=== PATIENT | male | born 2005 | race Caucasian/White ===

== ENCOUNTER 2025-03-30 16:08 | Emergency (ER) | payer OTHER, SELFPAY ==
[2025-03-30 16:09] VITALS: BP 136/85
--- NOTE | 2025-03-30 19:23 | ED.MUSCINJ ---
HPI-Injury
General
Chief Complaint: Musculo-Skeletal Complaint
Source: patient
Exam Limitations: none
Time Seen by Provider: 03/30/25 17:41
Nursing documentation reviewed up to this point in time: agreed with
History of Present Illness-Injury
Initial Injury comments:
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 Has had increasing pain and some swelling in the forearm where the handle was leaning on.
Past History
Past History
ED Past Medical History: None
ED Past Surgical History: Orthopedic
Social History
Tobacco: Non-smoker
Alcohol: Occasional
Personal: Single
Living: with family
Employment: Employed
Review of Systems
Review of Systems
Allergies reviewed?: Yes
All Other Systems: ROS reviewed and negative except as documented in HPI and ROS
Phy Exam
Physical Exam
Physical Exam:
PHYSICAL EXAMINATION:
General: no apparent distress, not acutely ill
Neuro: alert and oriented.
Psychiatric: well kept. interactive and cooperative
Musculoskeletal: Moves with ease. Mild swelling and tenderness mid right forearm consistent with contusion. Distal n/v intact. Full ROM, full tendon function.
Skin: Warm, pink.
Injury Course
Orders/Labs/Results
Orders:
Orders
03/30/25 16:15
CR Forearm - Right 2 View Urgent
Comment:
Reason For Exam: pain swelling after shoveling
CR Wrist - Right Min 3 Views Urgent
Comment:
Reason For Exam: pain swelling after shoveling
MDM/Problems Addressed
MDM/Problems Addressed:
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 Has had increasing pain and some swelling in the forearm where the handle was leaning on.
Xray right wrist and forearm neg
Hx and exam consistent with contusion.
*Pulse Oximetry
SaO2: 100
Oxygen Mode of Delivery: Room air
Patient hypoxic: not evaluated
*Critical Care Note
Total Time (30-74mins, 75-104mins- exclusive of procedures): Not Applicable
ED Attending Note
-
Portions of this chart may have been created with voice recognition software.� Occasional wrong word or��sound alike� substitutions may have occurred due to the inherent limitations of voice recognition software.
Discharge Plan
Departure
Patient Disposition: Home (Routine Discharge)
Date of Disposition: 03/30/25
Time of Disposition: 18:20
Patient with high blood pressure during this ER visit?: No
Condition: Good
Discharge Problem:
Contusion of right forearm
Instructions: Contusion (DC)
Prescriptions:
No Action
cephalexin 250 MG capsule
250 mg PO TID Qty: 21 0RF
Referrals:
Kristina Bush I., DO [Active, Orthopedics] - As needed
Activity Restrictions/Additional Instructions:
As we discussed, your x-ray shows normal bones.
Cold compress to the area 20 minutes off and on is much as you can today and tomorrow to help minimize swelling.
Ibuprofen 400 mg every 6 hours as needed for pain.
See the orthopedic doctor in 2 weeks if it is not 100% better by then
Interventions
Interventions:
*Risk Screen - Suicide Last Done: 03/30/25 16:09
*General Assessment Last Done: 03/30/25 16:09
*Neglect/Abuse Screening Last Done: 03/30/25 16:09
*ED COVID-19 Vaccine History Last Done: 03/30/25 16:09
*Nursing Disposition Last Done: 03/30/25 18:57
ED-Musculoskeletal Assessment Last Done: 03/30/25 18:51
Discharge Date and Time
Discharge Date/Time: 03/30/25 18:57
Print Language: ROMANSH
== END 2025-03-30 18:57 | disposition home or self-care (01) ==
LOC: EMR 16:08
PROVIDERS: EMERGENCY PHYSICIAN Emergency Medicine; FAMILY PHYSICIAN Internal Medicine
DX: S50.11XA Contusion of right forearm, initial encounter (principal); X50.1XXA Overexertion from prolonged static or awkward postures, initial encounter; Y92.79 Other farm location as the place of occurrence of the external cause; Y99.0 Civilian activity done for income or pay
CPT/HCPCS: 99283; 73090; 73110

== ENCOUNTER 2025-03-31 11:25 | Emergency (ER) | payer OTHER, SELFPAY ==
[2025-03-31 11:28] VITALS: BP 139/100
[2025-03-31 14:21] VITALS: BP 125/70
--- NOTE | 2025-03-31 14:25 | ED.GENMED ---
History of Present Illness
General
Chief Complaint: Numbness
Source: patient
Time Seen by Provider: 03/31/25 11:54
History of Present Illness
History of Present Illness:
20-year-old male with no significant past medical history presents emergency department for evaluation after being seen here yesterday for right forearm injury where he was thought to have a muscle contusion, concerned that he developed intermittent
tingling sensation to the forearm and hand stating he believes he has a blood clot. 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 Patient states there is no direct trauma or injury. Denies
any color changes, heat or cold intolerance, focal weakness or numbness or any previous complications to the same extremity.
Past History
Past History
ED Past Medical History: None
ED Past Surgical History: Orthopedic
Social History
Tobacco: Non-smoker
Alcohol: Occasional
Drug: None
Personal: Single
Living: with family
Employment: Employed
Review of Systems
Review of Systems
All Other Systems: ROS reviewed and negative except as documented in HPI and ROS
Phy Exam
Physical Exam
Physical Exam:
GENERAL: Alert , in no apparent distress
EYE: conjunctiva clear
Head: Normocephalic atraumatic
NECK: Supple,
ENT: mmm.
LUNGS: no acute respiratory distress
NEUROLOGICAL: Alert and oriented
SKIN: Warm and dry, skin intact.
MUSCULOSKELETAL: Right upper extremity: No obvious deformity, erythema, edema, ecchymosis, abrasion. Patient allows for full range of motion without any difficulty. Sensation is grossly intact and equal to light touch. There is an easily palpable
radial pulse. Cap refill less than 2 seconds.
PSYCH: Normal and appropriate interaction.
Scores
Heart Failure Risk
Heart Failure Risk Score: Not Applicable
Heart Score for Chest Pain Patients
STEMI patient?: Not applicable
Withdrawal Assessment of Alcohol
Withdrawal Assessment Completed?: Not applicable
Course
Orders/Labs/Results
Orders:
Orders
03/31/25 11:55
US Periph Venous UPPER Ext RT Urgent
Comment:
Reason For Exam: pain
Vital Signs
Initial and Last Documented VS:
Initial Vital Signs
Temp Pulse Resp BP Pulse Ox
98.4 F 99 16 139/100 99
03/31/25 11:28 03/31/25 11:28 03/31/25 11:28 03/31/25 11:28 03/31/25 11:28
Last Documented Vital Signs
Temp Pulse Resp BP Pulse Ox
98.4 F 90 16 125/70 99
03/31/25 11:28 03/31/25 14:21 03/31/25 14:21 03/31/25 14:21 03/31/25 14:26
MDM/Problems Addressed
Differential Diagnosis Includes:
Strain
Tendonitis
Contusion
No concern for fracture
Minimal concern for DVT
Thoracic outlet syndrome
Carpal Tunnel
MDM/Problems Addressed:
20-year-old male presenting to the ER for evaluation after being seen yesterday for what was suspected to be a forearm muscular injury. No new injury today. Patient is mainly concerned for DVT. Based off presentation I suspect this is a very
unlikely diagnosis but will obtain ultrasound to further evaluate. Anticipate discharge home.
*Radiology
Radiology exam reviewed: radiology read reviewed
*Pulse Oximetry
SaO2: 99
Oxygen Mode of Delivery: Room air
Patient hypoxic: no
*Critical Care Note
Total Time (30-74mins, 75-104mins- exclusive of procedures): Not Applicable
Patient Management
Escalation/DeEscalation of care consider admission/obs:
Ultrasound is negative for DVT. Continue NSAIDs/Tylenol as needed for pain. Stable for discharge home. Information for orthopedics provided.
ED Attending Note
-
Portions of this chart may have been created with voice recognition software.� Occasional wrong word or��sound alike� substitutions may have occurred due to the inherent limitations of voice recognition software.
Discharge Plan
Departure
Patient Disposition: Home (Routine Discharge)
Date of Disposition: 03/31/25
Time of Disposition: 14:25
Patient with high blood pressure during this ER visit?: No
Discharge Problem:
Pain in right forearm
Instructions: STRAINS
Prescriptions:
No Action
cephalexin 250 MG capsule
250 mg PO TID Qty: 21 0RF
Referrals:
Marv Tellez MD [Active, Orthopedics]
Isma Peterson MD [Family Provider, Internal Medicine]
Interventions
Interventions:
*Risk Screen - Suicide Last Done: 03/31/25 11:28
*General Assessment Last Done: 03/31/25 11:28
*Neglect/Abuse Screening Last Done: 03/31/25 11:28
*ED- Fall Risk Assessment Last Done: 03/31/25 11:41
*ED COVID-19 Vaccine History Last Done: 03/31/25 11:41
*Nursing Disposition Last Done: 03/31/25 14:31
ED- Neurological Assessment Last Done: 03/31/25 11:42
Discharge Date and Time
Discharge Date/Time: 03/31/25 14:32
Print Language: MACEDONIAN
== END 2025-03-31 14:32 | disposition home or self-care (01) ==
LOC: EMR 11:25
PROVIDERS: EMERGENCY PHYSICIAN Emergency Medicine; FAMILY PHYSICIAN Internal Medicine
DX: M79.631 Pain in right forearm (principal); R20.0 Anesthesia of skin
CPT/HCPCS: 99284; 93971